=== PATIENT | male | born 1995 | race African-American/Black ===

== ENCOUNTER 2020-11-19 10:13 | Emergency (ER) | payer OTHER ==
[~2020-11-19] VITALS: Ht 170.2 cm; Wt 52.2 kg
[2020-11-19] MEDS ORDERED: IBUPROFEN 600 MG TAB PO STA (10:15)
[2020-11-19] MEDS ORDERED: LIDOCAINE 4% PATCH TP SCH (10:15)
[2020-11-19] MEDS ORDERED: HYDROCODONE/APAP 5MG-325MG TAB PO ONE (10:15)
[2020-11-19] MEDS ORDERED: VALIUM2 MG PO (10:44)
[2020-11-19] MEDS ORDERED: LIDOPATCH1 EACH TOP (10:44)
[2020-11-19] MEDS ORDERED: ROBAXIN-750750 MG PO (10:44)
[2020-11-19 11:27] VITALS: BP 124/75
== END 2020-11-19 11:28 | disposition home or self-care (01) ==
LOC: ER 10:52
DX: R07.89 Other chest pain (principal); S20.212A Contusion of left front wall of thorax, initial encounter; Y04.0XXA Assault by unarmed brawl or fight, initial encounter; Y92.29 Other specified public building as the place of occurrence of the external cause
CPT/HCPCS: 71101; 99283